=== PATIENT | male | born 1995 | race Caucasian/White ===

== ENCOUNTER 2024-11-10 23:47 | Emergency (ER) | payer MEDICAID ==
[~2024-11-10] VITALS: Ht 167.6 cm; Wt 67.8 kg
[2024-11-11 00:12] VITALS: O2SAT 99
[2024-11-11 03:14] VITALS: BP 137/76; PULSE 97; RESP 16; TEMP 36.66960
== END 2024-11-11 03:14 | disposition home or self-care (01) ==
LOC: ER 11-11 00:19
DX: S71.112D Laceration without foreign body, left thigh, subsequent encounter (principal); Z48.02 Encounter for removal of sutures; X58.XXXD Exposure to other specified factors, subsequent encounter
CPT/HCPCS: 99281